=== PATIENT | female | born 1990 | race Hispanic/Latino ===

== ENCOUNTER 2021-02-03 09:39 | Outpatient (CLI) | payer MEDICAID ==
[2021-02-03 10:50] VITALS: BP 113/66
== END 2021-02-03 13:43 | disposition home or self-care (01) ==
LOC: TRG 09:39 → APU 09:40 → TRG 13:43
PROVIDERS: ATTEND Obstetrics & Gynecology
DX: Z34.93 Encounter for supervision of normal pregnancy, unspecified, third trimester (principal); Z3A.41 41 weeks gestation of pregnancy
CPT/HCPCS: 59025

== ENCOUNTER 2021-02-04 00:44 | Inpatient (IN) | payer MEDICAID ==
[2021-02-04] MEDS ORDERED: MINERAL OIL 30 ML ORAL LIQD PO PRN (02:57)
[2021-02-04] MEDS ORDERED: ACETAMINOPHEN 325 MG TAB PO PRN (02:57)
[2021-02-04] MEDS ORDERED: TERBUTALINE 1 MG/1 ML INJ SUB-Q PRN (02:57)
[2021-02-04] MEDS ORDERED: PROMETHAZINE 25 MG TAB PO PRN ×2 (02:57→21:02)
[2021-02-04] MEDS ORDERED: fentaNYL 100 MCG/2 ML INJ IV PRN (02:57)
[2021-02-04] MEDS ORDERED: NalbUPHINE 10 MG/1 ML INJ IV PRN (02:57)
[2021-02-04] MEDS ORDERED: ONDANSETRON 4 MG/2 ML INJ IV PRN ×2 (02:57→21:02)
[2021-02-04] MEDS ORDERED: LIDOCAINE (2%) 20 MG/1 ML VIAL 20 ML MDV INFILTRATI ONE ×2 (02:57→16:26)
[2021-02-04] MEDS ORDERED: OXYTOCIN DRIP 30 UNITS/500 ML BAG IV SCH (03:00)
--- NOTE | 2021-02-04 03:09 | History and Physical Report ---
History of Present Illness Date of examination: 02/04/21 Chief complaint: term active labor History of present illness: Pt reports contractions q7-9mins and 7/10 on pain scale for the last few hours; desires pain relief. Denies LOF and VB. Reports +FM and +support system @[facility] Confirmation: 01/25/2021 Gestational Age: 41 3/7 weeks Past History : 1 Term Births: 0 Premature Births: 0 Living Children: 0 Para: 0 Mult. Births: 0 Prev : 0 Aborta: 0 Elect. Ab: 0 Spont. 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 % Sun Exposure: occasionally Family History Risk Factors: Family History of GA in females < 65 years old: no Dietary Counseling: pn yes Past Medical History: Reviewed history and no changes required: Negative Past Medical History Past Surgical History: Reviewed history and no changes required: negative Past Medical History Anesthesia Complications: negative Anemia: negative Autoimmune Disorder: negative Bleeding Disorder: negative Blood Transfusions: negative Breast Disease: negative Diabetes: negative Heart Disease: negative Hypertension: negative Hepatitis/Liver Disease: negative Kidney Disease/UTI: negative Neurologic/Epilepsy/Migraines: negative Phlebitis/Varicosities: negative Psychiatric: negative Pulmonary Disease/Asthma: negative Thyroid Disease: negative Hospitalizations: negative Surgery (Non-senior network security architect): negative Abnormal PAP: negative RAMAKRISHNA Exposure: negative Infertility: negative Uterine Anomaly: negative Uterine Surgery (not C/S): negative Other Gynecologic Problems: negative Infection History Hx of STD: none HIV Risk Eval: no Hepatitis B Risk Eval: low risk Personal hx. of genital herpes: no Partner hx. of genital herpes: no Rash, Viral, or Febrile illness since last LMP? no Varicella/Chicken Pox Status: Previous Disease TB Risk: no Genetic History Congenital Heart Defect: Mom: no Dad: no Kiera Disease: Mom: no Dad: no Thalassemia Mom: no Dad: no Neural Tube Defect Mom: no Dad: no Down's Syndrome Mom: no Dad: no Charlie-Sachs Mom: no Dad: no Sickle Cell Disease/Trait Mom: no Dad: no Hemophilia Mom: no Dad: no Muscular Dystrophy Mom: no Dad: no Cystic Fibrosis Mom: no Dad: no Shorter Chorea Mom: no Dad: no Mental Retardation Mom: no Dad: no Fragile X Mom: no Dad: no Other Genetic/Chromosomal Disorder Mom: no Dad: no Child w/other defect Mom: no Dad: no Enviromental Exposures Enviromental Exposures Reviewed Xray Exposure: no Medication, drug, or alcohol use since LMP: no Chemical/Other Exposure: no Exposure to Cat Liter: yes Hx of Parvovirus (Fifth Disease): no Occupational Exposure to Children: none Active Medications (reviewed today): None Current Allergies (reviewed today): * NICKEL (Critical) Past History Past Medical History: no pertinent history (see HPI) Past Surgical History: no surgical history 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 TRAINING 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: abnormal PAP smear Family/Genetic History: none Social history: no significant social history - Obstetrical History Expected Date of Delivery: 01/25/21 Actual Gestation: 41 Week(s) 3 Day(s) : 1 Para: 0 Hx # Term Pregnancies: 0 Number of Pregnancies: 0 Spontaneous Abortions: 0 Induced : 0 Number of Living Children: 0 Medications and Allergies Allergies Allergy/AdvReac Type Severity Reaction Status Date / Time nickel Allergy Rash Verified 02/03/21 10:16 Home Medications Medication Instructions Recorded Confirmed Last Taken Type One Daily Tablet 1 tab PO DAILY 02/04/21 02/04/21 3 Days Ago History ~02/01/21 Review of Systems All systems: negative Genitourinary: contractions - Vital Signs Vital signs: Vital Signs Temp Pulse Resp BP 98.8 F 76 12 134/70 02/04/21 00:54 02/04/21 00:54 02/04/21 00:54 02/04/21 00:54 Temp Pulse Resp BP Pulse Ox 98.8 F 76 12 134/70 02/04/21 00:54 02/04/21 00:58 02/04/21 00:54 02/04/21 00:58 - Physical Exam Breasts: Positive: normal Cardiovascular: Regular rate Lungs: Positive: Normal air movement Abdomen: Positive: normal appearance, soft Genitourinary (Female): Positive: normal external genitalia, normal perenium Vagina: Positive: normal moisture Uterus: Positive: normal size Extremities: Positive: normal - Obstetrical FHR: auscultation normal, category 1 Uterine Contraction Monitor Mode: External Uterine Contraction Pattern: Regular Uterine Tone Measurement Phase: Resting Uterine Contraction Intensity: Moderate Results Result Diagrams: 02/04/21 03:00 All other labs normal. Chlamydia by ALMAS Negative Negative *1 Gonococcus by ALMAS Negative Negative *2 Trich vag by ALMAS Negative Negative *3 Tests: (2) Strep Gp B ALMAS ([id number]) ! Strep Gp B ALMAS Negative Negative *4 HIV Screen 4th Generation wRfx Non Reactive Non Reactive *57 HBsAg Screen Negative Negative *1 RPR Non Reactive Non Reactive *2 Rubella Antibodies, IgG 2.05 index Immune >0.99 *3 Non-immune <0.90 Equivocal 0.90 - 0.99 Immune >0.99 ABO Grouping A *4 Rh Factor Positive *5 Please note: Prior records for this patient's ABO / Rh type are not available for additional verification. Antibody Screen Negative Negative *6 WBC 7.8 x10E3/uL 3.4-10.8 *7 RBC 3.93 x10E6/uL 3.77-5.28 *8 Hemoglobin 12.2 g/dL 11.1-15.9 *9 Hematocrit 35.5 % 34.0-46.6 *10 MCV 90 fL 79-97 *11 MCH 31.0 pg 26.6-33.0 *12 MCHC 34.4 g/dL 31.5-35.7 *13 RDW 12.2 % 11.7-15.4 *14 Platelets 277 x10E3/uL 150-450 *15 Neutrophils 71 % Not Estab. *16 Lymphs 24 % Not Estab. *17 Monocytes 4 % Not Estab. *18 Eos 1 % Not Estab. *19 Basos 0 % Not Estab. *20 ! Immature Cells <No Reported Value> *21 Neutrophils (Absolute) 5.5 x10E3/uL 1.4-7.0 *22 Lymphs (Absolute) 1.9 x10E3/uL 0.7-3.1 *23 Monocytes(Absolute) 0.3 x10E3/uL 0.1-0.9 *24 Eos (Absolute) 0.1 x10E3/uL 0.0-0.4 *25 Baso (Absolute) 0.0 x10E3/uL 0.0-0.2 *26 ! Immature Granulocytes 0 % Not Estab. *27 ! Immature Grans (Abs) 0.0 x10E3/uL 0.0-0.1 *28 ! NRBC <No Reported Value> *29 Hematology Comments: <No Reported Value> *30 Tests: (3) HB Solu + Rflx Fra ([id number]) Hemoglobin (Hgb) Solubility Negative Negative *55 Tests: (4) Toxoplasma gondii Ab, IgG ([id number]) ! Toxoplasma gondii Ab,IgG <3.0 IU/mL 0.0-7.1 *56 Negative <7.2 Equivocal 7.2 - 8.7 Positive >8.7 Tests: (6) Toxoplasma gondii Ab,IgM ([id number]) ! Toxoplasma gondii Ab,IgM 4.2 AU/mL 0.0-7.9 *58 Negative <8.0 Equivocal 8.0 - 9.9 Positive >9.9 Tests: (7) Comment: ([id number]) ! Comment: SPR *59 It is presumed the patient has not been infected with and is not undergoing an acute infection with Toxoplasma. If symptoms persist, submit a new specimen after three weeks. Tests: (8) Urine Culture, Routine ([id number]) Urine Culture, Routine Final report *60 Tests: (9) Result ([id number]) ! Result 1 No growth *61 Assessment and Plan - Patient Problems (1) Active labor Current Visit: Yes Status: Acute Plan to address problem: Admit pt to labor; continuous monitoring per ordered labor protocol. Epidural when desired. Oxytocin augmentation per protocol. Anticipate (2) 41 weeks gestation of Current Visit: Yes Status: Acute
[2021-02-04 03:39] LABS: Hematocrit 39.4 % (30.3-42.9); Hemoglobin 13.6 gm/dl (10.1-14.3); Mean Corpuscular HGB Conc 35 % (30-34); Mean Corpuscular Volume 89 fl (79-97); Platelet Count 275 K/mm3 (140-440); Red Blood Count 4.41 M/mm3 (3.65-5.03); Red Cell Distribution Width 12.6 % (13.2-15.2)
--- NOTE | 2021-02-04 04:53 | Anesthesia Consultation ---
Anesthesia Consult and Med Hx Date of service: 02/04/21 - Airway Anesthetic Teeth Evaluation: Good ROM Head & Neck: Adequate Mental/Hyoid Distance: Adequate Mallampati Class: Class II Intubation Access Assessment: Good - Pulmonary Exam CTA: Yes - Cardiac Exam Cardiac Exam: RRR - Pre-Operative Health Status ASA Pre-Surgery Classification: ASA2 Proposed Anesthetic Plan: Epidural - Pulmonary Hx Smoking: No Hx Asthma: No Hx Respiratory Symptoms: No SOB: No COPD: No Home Oxygen Therapy: No Hx Pneumonia: No Hx Sleep Apnea: No - Cardiovascular System Hx Hypertension: No Hx Coronary Artery Disease: No Hx Heart Attack/AMI: No Hx Angina: No Hx Percutaneous Transluminal Coronary Angioplasty (PTCA): No Hx Cardia Arrhythmia: No Hx Pacemaker: No Hx Internal Defibrillator: No Hx Valvular Heart Disease: No Hx Heart Murmur: No Hx Peripheral Vascular Disease: No - Central Nervous System Hx Neuromuscular Disorder: No Hx Seizures: No CVA: No Hx Back Pain: Yes Hx Psychiatric Problems: No - Gastrointestinal Hx Ulcer: No Hx Gastroesophageal Reflux Disease: Yes - Endocrine Hx Renal Disease: No Hx End Stage Renal Disease: No Hx Cirrhosis: No Hx Liver Disease: No Hx Insulin Dependent Diabetes: No Hx Non-Insulin Dependent Diabetes: No Hx Thyroid Disease: No Hx Hypothyroidism: No Hx Hyperthyroidism: No - Hematic Hx Anemia: No Hx Sickle Cell Disease: No - Other Systems Hx Alcohol Use: No Hx Substance Use: No Hx Cancer: No Hx Obesity: Yes
[2021-02-04] MEDS ORDERED: NALOXONE 2 MG/2 ML INJ IV PRN (04:56)
[2021-02-04] MEDS ORDERED: ePHEDrine SULFATE 50 MG/1 ML INJ IV PRN (04:56)
--- NOTE | 2021-02-04 04:56 | Progress Note ---
Labor Epidural - Labor Epidural Start Time: 04:27 Stop Time: 04:40 Performed by:: MAILE PAN Procedure: Patient is requesting a laboring epidural for laboring pain. Patient IDed, H&P reviewed, all questions and concerns were answered, and consent was signed. Timeout was performed at bedside. Patient in sitting position. Sterile prep and drape was performed. [3] ml of 1% lidocaine skin wheal at L[3]- L [4]. 18- gauge Tuohy epidural needle was advanced to loss of resistance with saline technique 6cm. Single dural perforation via 27 guage spinal needle placed through the shaft of Epidural needle. Positive CSF via spinal needle. Negative CSF negative blood via Epidural needle. Epidural catheter advanced to [10] centimeters. [NEGATIVE] Aspiration [NEGATIVE] test dose. Negative Paresthesia. Sterile dressing applied. Patient tolerated procedure.
[2021-02-04] MEDS: fentaNYL-BUPIV 2 MCG/ML-0.125% 200 MCG/100 ML BAG EPIDURAL SCH ×2 (05:35→14:06)
[2021-02-04] MEDS: OXYTOCIN DRIP 30 UNITS/500 ML BAG IV SCH ×2 (05:46→17:41)
[2021-02-04] MEDS: ePHEDrine SULFATE 50 MG/1 ML INJ IV PRN ×2 (05:46→05:59)
[2021-02-04] MEDS: LACTATED RINGERS 1,000 ML IV SCH ×2 (05:56→11:44)
--- NOTE | 2021-02-04 14:37 | Event Note ---
Date: 02/04/21 Pt resting comfortably with epidural. SVE 9cm/100%/-1 VTX with BBOW. Cat 1 FHT's at this time with adequate contraction pattern; augmenting with Pitocin per ordered protocol. POC and optimizing positioning for continued labor progression d/w pt, SO, and assigned RNs. Anticipate .
[2021-02-04] MEDS ORDERED: METHYLERGONOVINE MALEATE 0.2 MG/ML VIAL IM ONE ×2 (17:16→18:33)
[2021-02-04] MEDS ORDERED: ACETAMINOPHEN 500 MG TAB ONE (18:30)
--- NOTE | 2021-02-04 18:30 | Procedure Note ---
OB Delivery Note - Delivery Date of Delivery: 02/04/21 Bagger Meat: ANIYA LANZA (Dr. Glover present for ) Estimated blood loss: other (400mL) - Vaginal Delivery presentation: vertex Delivery position: OA Delivery induction: none Delivery augmentation: pitocin Delivery monitor: external FHT, external uterine Route of delivery: Delivery placenta: spontaneous Delivery cord: 3 umbilical vessels Episiotomy: none Delivery laceration: 2nd degree Delivery repair: vicryl Anesthesia: local, epidural - Infant A at 1 minute: 7 at 5 minutes: 8 Gender: Female (baby "Dev")
[2021-02-04] MEDS ORDERED: ACETAMINOPHEN 500 MG TAB PO ONE (19:33)
[2021-02-04] MEDS ORDERED: MAGNESIUM HYDROXIDE (MOM) ORAL LIQD UDC PO PRN (21:02)
[2021-02-04] MEDS ORDERED: LANOLIN/ZINC/DIMETHICONE (LANSINOH) 7 GM TP PRN (21:02)
[2021-02-04] MEDS ORDERED: BENZOCAINE/MENTHOL 20/0.5% TOP SPRAY 56 GM TP PRN (21:02)
[2021-02-04] MEDS ORDERED: diphenhydrAMINE 25 MG CAP PO PRN (21:02)
[2021-02-04] MEDS ORDERED: WITCH HAZEL/ GLYCERIN PAD TP PRN (21:02)
[2021-02-04] MEDS: IBUPROFEN 600 MG TAB PO SCH (22:25)
[2021-02-04] MEDS: DOCUSATE SODIUM 100 MG CAP PO SCH (22:25)
[2021-02-05] MEDS: IBUPROFEN 600 MG TAB PO SCH ×4 (04:11→22:33)
--- NOTE | 2021-02-05 07:14 | Progress Note ---
Assessment and Plan A: 30 y.o. s/p approximately 13 hours. Doing well . P: Continue with care. Anticipate discharge home on 02/06. Subjective - Subjective Date of service: 02/05/21 (Pt doing well. ) Principal diagnosis: s/p , baby in NICU Patient reports: appetite normal, voiding normally, pain well controlled, flatus, ambulating normally : doing well, in NICU Objective - Vital Signs Latest vital signs: Vital Signs Temp Pulse Resp Resp BP BP Pulse Ox 02/05/21 04:20 98.6 F 96 H 20 134/76 99 02/05/21 01:08 98.1 F 84 20 102/61 99 02/04/21 22:47 18 02/04/21 22:25 18 02/04/21 19:54 112 H 97 02/04/21 19:49 89 98 02/04/21 19:44 87 97 02/04/21 19:42 91 H 128/72 02/04/21 19:39 88 98 02/04/21 19:34 93 H 98 02/04/21 19:31 18 02/04/21 19:29 92 H 98 02/04/21 19:27 98 H 128/72 02/04/21 19:24 90 98 02/04/21 19:19 91 H 97 02/04/21 19:14 92 H 98 02/04/21 19:12 94 H 128/69 02/04/21 19:11 98.3 F 85 15 128/69 90 02/04/21 19:09 92 H 99 02/04/21 19:04 87 99 02/04/21 18:59 91 H 99 02/04/21 18:57 95 H 124/69 02/04/21 18:54 92 H 99 02/04/21 18:49 107 H 99 02/04/21 18:44 94 H 99 02/04/21 18:43 100 H 129/74 02/04/21 18:21 97 H 98 02/04/21 18:16 93 H 98 02/04/21 18:12 93 H 118/66 02/04/21 18:11 84 100 02/04/21 18:06 109 H 97 02/04/21 18:01 105 H 97 02/04/21 17:57 110 H 131/74 02/04/21 17:56 108 H 100 02/04/21 17:55 99.2 F 18 02/04/21 17:51 98 H 100 02/04/21 17:46 99 H 98 02/04/21 17:42 108 H 129/66 02/04/21 17:41 124 H 99 02/04/21 17:40 98.8 F 16 96 02/04/21 17:36 117 H 99 02/04/21 17:31 107 H 98 02/04/21 17:27 108 H 120/62 02/04/21 17:26 120 H 96 02/04/21 17:23 112 H 125/67 02/04/21 17:21 103 H 98 02/04/21 17:20 98.7 F 20 02/04/21 17:16 117 H 99 02/04/21 17:11 145 H 100 02/04/21 17:06 100 02/04/21 17:01 138 H 99 02/04/21 16:56 125 H 99 02/04/21 16:51 121 H 99 02/04/21 16:50 106 H 133/69 02/04/21 16:46 116 H 100 02/04/21 16:41 118 H 100 02/04/21 16:36 110 H 100 02/04/21 16:33 79 L 02/04/21 16:29 107 H 99 02/04/21 16:25 84 93 02/04/21 16:24 108 H 100 02/04/21 16:20 97 H 89 02/04/21 16:19 109 H 100 02/04/21 16:14 59 L 81 L 02/04/21 16:12 71 L 02/04/21 16:09 117 H 100 02/04/21 16:06 112 H 93 02/04/21 16:04 104 H 100 02/04/21 15:59 82 99 02/04/21 15:54 103 H 97 02/04/21 15:49 105 H 100 02/04/21 15:47 99 H 94 02/04/21 15:44 89 100 02/04/21 15:39 96 H 100 02/04/21 15:34 86 99 02/04/21 15:29 91 H 99 02/04/21 15:28 94 H 94 02/04/21 15:24 84 99 02/04/21 15:19 97 H 93 18 15:18 84 94 02/04/21 15:14 100 H 96 02/04/21 15:09 85 100 02/04/21 15:04 83 99 02/04/21 14:59 81 96 02/04/21 14:58 82 93 02/04/21 14:54 84 100 02/04/21 14:49 98 H 99 02/04/21 14:44 92 H 99 02/04/21 14:39 89 100 02/04/21 14:34 95 H 94 02/04/21 14:33 91 H 93 02/04/21 14:29 103 H 97 02/04/21 14:28 102 H 94 02/04/21 14:24 88 95 02/04/21 14:22 93 H 94 02/04/21 14:19 100 H 97 02/04/21 14:14 101 H 100 02/04/21 14:09 107 H 98 02/04/21 14:08 99.0 F 16 96 02/04/21 14:06 87 116/65 02/04/21 14:04 96 H 99 02/04/21 13:59 92 H 98 02/04/21 13:54 89 99 02/04/21 13:49 100 H 96 02/04/21 13:44 89 96 02/04/21 13:39 88 92 02/04/21 13:34 117 H 97 02/04/21 13:31 81 94 02/04/21 13:29 98 H 98 02/04/21 13:24 91 H 96 02/04/21 13:19 80 96 02/04/21 13:14 96 H 100 02/04/21 13:09 110 H 95 02/04/21 13:04 90 97 02/04/21 12:59 88 96 02/04/21 12:54 80 87 02/04/21 12:49 101 H 97 02/04/21 12:44 81 94 02/04/21 12:39 81 97 02/04/21 12:38 83 93 02/04/21 12:34 88 98 02/04/21 12:29 83 99 02/04/21 12:24 96 H 98 02/04/21 12:19 92 H 97 02/04/21 12:14 82 97 02/04/21 12:12 83 94 02/04/21 12:09 85 97 18 12:04 86 100 18 11:59 84 96 18 11:54 98 H 97 02/04/21 11:49 93 H 97 02/04/21 11:44 97 H 97 02/04/21 11:39 97 H 97 02/04/21 11:34 103 H 99 02/04/21 11:30 77 L 02/04/21 11:26 85 106/64 02/04/21 11:25 96 H 98 18 11:20 85 100 02/04/21 11:15 93 H 97 02/04/21 11:10 96 H 98 02/04/21 11:05 90 97 02/04/21 11:00 99 H 96 02/04/21 10:58 97.8 F 93 H 16 97 02/04/21 10:55 93 H 113/69 96 02/04/21 10:50 110 H 95 02/04/21 10:45 95 H 97 02/04/21 10:44 92 H 93 02/04/21 10:40 99 H 95 02/04/21 10:38 99 H 93 02/04/21 10:35 116 H 97 02/04/21 10:30 83 100 02/04/21 10:27 96 H 92 02/04/21 10:25 116 H 105/64 100 02/04/21 10:20 104 H 98 02/04/21 10:17 100 H 87 02/04/21 10:15 94 H 95 02/04/21 10:12 88 94 02/04/21 10:10 80 96 18 10:06 120 H 94 02/04/21 10:05 110 H 95 02/04/21 10:00 89 96 1821 09:59 81 94 1821 09:55 86 103/61 95 18 09:50 79 95 18 09:45 80 96 1821 09:40 79 96 18 09:35 83 98 1821 09:32 86 94 18 09:30 84 98 18 09:25 91 H 108/64 97 18 09:20 100 H 99 02/04/21 09:16 81 94 02/04/21 09:15 79 96 02/04/21 09:10 96 H 96 02/04/21 09:06 83 94 02/04/21 09:05 101 H 94 02/04/21 09:00 83 94 02/04/21 08:56 108 H 105/61 02/04/21 08:55 92 H 93 02/04/21 08:50 97 H 95 02/04/21 08:45 111 H 96 02/04/21 08:44 92 H 92 02/04/21 08:40 73 96 02/04/21 08:35 94 H 98 02/04/21 08:30 75 95 02/04/21 08:26 89 97/53 02/04/21 08:25 92 H 96 02/04/21 08:21 72 94 02/04/21 08:20 77 95 02/04/21 08:15 69 94 02/04/21 08:14 75 94 02/04/21 08:10 70 95 02/04/21 08:09 74 94 02/04/21 08:05 69 94 02/04/21 08:03 83 94 02/04/21 08:00 96 H 93 02/04/21 07:55 78 96/51 93 02/04/21 07:50 71 93 02/04/21 07:45 72 92 02/04/21 07:40 71 93 02/04/21 07:35 90 91 02/04/21 07:32 92 H 94 02/04/21 07:30 92 H 97 02/04/21 07:27 82 104/55 94 02/04/21 07:25 74 94 02/04/21 07:21 84 93 02/04/21 07:20 80 95 02/04/21 07:15 92 H 93 Intake and Output 02/04/21 02/05/21 02/05/21 22:59 06:59 14:59 Intake Total 22.267 Output Total 750 800 Balance -727.733 -800 Intake: IV 22.267 PITOCin/NS 30 UNIT/500ML 22.267 30 units In 500 ml @ 2 mls/hr IV TITR XANDER Rx#: [id number] Output: Urine 750 800 Indwelling Catheter 150 Void 600 800 Other: Total, Output Amount 600 800 # Voids Void 1 1 Estimated Blood Loss 400 - Exam Narrative Exam: Pt states in NICU "because the baby swallowed a lot of fluid". Spoke RN who will update pt on infant status. Breasts: Present: deferred Cardiovascular: Present: Regular rate Lungs: Present: Normal air movement Abdomen: Present: normal appearance, soft Vulva: both: normal Uterus: Present: normal, firm Extremities: Present: normal Deep Tendon Reflex Grade: Normal +2 Incision: Present: other (Laceration intact, healing. No s/sx of infection noted. )
[2021-02-05] MEDS: DOCUSATE SODIUM 100 MG CAP PO SCH ×2 (09:30→22:34)
[2021-02-05] MEDS: PRENATAL VIT27-FE FUMARATE-FOLIC ACID VIT TAB PO SCH (09:30)
[2021-02-05 10:10] LABS: Hematocrit 30.6 % (30.3-42.9); Hemoglobin 10.6 gm/dl (10.1-14.3)
--- NOTE | 2021-02-05 10:21 | Post Anesthesia Evaluation ---
- Post Anesthesia Evaluation Patient Participated: Yes Airway Patent: Yes Stable Respiratory Function: Yes Nausea/Vomiting: No Temp > 96.8F: Yes Pain Manageable: Yes Adequeate Hydration: Yes Anesthesia Complications: No Block Receding Appropriately: Yes Patient on Ventilator: No
[2021-02-06] MEDS: IBUPROFEN 600 MG TAB PO SCH ×2 (05:21→12:35)
--- NOTE | 2021-02-06 06:17 | Discharge Summary ---
Providers - Providers Date of Admission: 02/04/21 02:57 Date of discharge: 02/06/21 (pt desires d/c) Attending physician: LAEJANDRO MOE 02/04/21 21:02 Consult to Community Manager [CONS] Routine Reason For Exam: assistance with , SNS Primary care physician: ALEJANDRO MOE Hospitalization Reason for admission: induction of labor, IUP at term Delivery: Episiotomy: none Laceration: 2nd degree Incision: normal, dry, intact Other procedures: none complications: none Discharge diagnosis: IUP at term delivered [place] baby: female Hospital course: uncomplicated vaginal delivery IOL postdates Pt awake caring for NB. Breast feeding well. VSS FF below umb Lochia small perineum slight swelling intact. H&H 10, stable No s/SX of anemia. Doing well s/p vag del. P: d/c today RTO 4 wks Desires IUD for PP BC RX Motrin @ d/c Condition at discharge: Good Disposition: DC-01 TO HOME OR SELFCARE - Discharge Diagnoses (1) Spontaneous vaginal delivery Status: Acute Comment: RTO 4 weeks PP Care Plan - Discharge Medications Prescriptions: Ibuprofen [Motrin 800 MG tab] 800 mg PO TID PRN #30 tablet PRN Reason: Pain - Provider Discharge Summary Activity: routine, no sex for 6 weeks, no heavy lifting 4 weeks, no strenuous exercise Diet: routine Instructions: routine Additional instructions: [] Smoking cessation referral if applicable(refer to patient education folder for contact #) [] Refer to [facility]'s [facility] Booklet Call your doctor immediately for: * Fever > 100.5 * Heavy vaginal bleeding ( >1 pad per hour) * Severe persistent headache * Shortness of breath * Reddened, hot, painful area to leg or breast * Drainage or odor from incision. * Keep incision clean and dry at all times and follow doctor's instructions regarding bathing/showering - Follow up plan Follow up: ALEJANDRO MOE MD [Primary Care Provider] - 03/06/21 (Congratulations! Please call [phone] to schedule your visit in 4 weeks. Take Motrin as prescribed. Call with any concerns.)
[2021-02-06] MEDS: PRENATAL VIT27-FE FUMARATE-FOLIC ACID VIT TAB PO SCH (10:46)
[2021-02-06] MEDS: DOCUSATE SODIUM 100 MG CAP PO SCH (10:46)
[2021-02-06] MEDS ORDERED: TETANUS,DIPH,PERTUSS(ACELL) VACCINE 0.5 ML SYRINGE IM ONE ×2 (12:26→16:00)
[2021-02-06 16:58] VITALS: BP 114/53
== END 2021-02-06 18:05 | disposition home or self-care (01) | DRG 775 ==
LOC: TRG 00:44 → APU 00:46 → LD 02:57 → TRG 02:57 → OB 20:41
PROVIDERS: ADMIT Obstetrics & Gynecology; ATTEND Obstetrics & Gynecology
PROC: 10E0XZZ Delivery of Products of Conception, External Approach (ICD-10-PCS; principal; 2021-02-04)
PROC: 0KQM0ZZ Repair Perineum Muscle, Open Approach (ICD-10-PCS; 2021-02-04)
PROC: 3E0R3BZ Introduction of Anesthetic Agent into Spinal Canal, Percutaneous Approach (ICD-10-PCS; 2021-02-04)
PROC: 00HU33Z Insertion of Infusion Device into Spinal Canal, Percutaneous Approach (ICD-10-PCS; 2021-02-04)
PROC: 3E0234Z Introduction of Serum, Toxoid and Vaccine into Muscle, Percutaneous Approach (ICD-10-PCS; 2021-02-06)
DX: O48.0 Post-term pregnancy (principal); O70.1 Second degree perineal laceration during delivery; Z3A.41 41 weeks gestation of pregnancy; Z20.822 Contact with and (suspected) exposure to COVID-19; Z37.0 Single live birth; Z23 Encounter for immunization
CPT/HCPCS: 36415; 59025; 85014; 85018; 85027; 86592; 86850; 86900; 86901; 90715; 96360; G0378; J2590; J3010; J7120; U0003